=== PATIENT | male | born 1995 | race African-American/Black ===

== ENCOUNTER 2016-12-11 20:16 | Emergency (ER) | payer SELFPAY ==
[~2016-12-11] VITALS: Ht 188 cm; Wt 104.3 kg
[2016-12-11 20:32] VITALS: BP 149/72
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
--- NOTE | 2016-12-12 08:00 | RAD ---
EXAM: Neck soft tissues 2 views. HISTORY: Forearm body sensation. COMPARISON: None. FINDINGS: There is pneumomediastinum which tracks throughout the retropharyngeal soft tissue planes. No radiopaque foreign body or clear soft tissue swelling are seen. IMPRESSION: 1. Pneumomediastinum extending through the retropharyngeal soft tissue planes. No clear radiopaque foreign body. These findings were called to Dr. Corky Canchola by Jimmie Perez on 12/12/2016 at 0750.
--- NOTE | 2016-12-12 08:22 | PDOC ---
OBJECTIVE Vital Signs Vital Signs Date Time Temp Pulse Resp B/P Pulse Ox O2 Delivery O2 Flow Rate FiO2 12/11/16 20:32 98.0 78 18 97 Room Air 98.0 ASSESSMENT/PLAN Assessment/Plan Received call from radiology re: x-ray soft tissue neck that was obtained last night. Official radiology read as below: IMPRESSION: 1. Pneumomediastinum extending through the retropharyngeal soft tissue planes. No clear radiopaque foreign body. Per radiologist, this could be simply from coughing fit and air that has tracked up into neck soft tissues. However, if patient did swallow foreign body , it could represent more serious problem such as esophageal perforation. I called the patient's listed home phone number; I spoke with another member of the household, who will have him call back to the ED as soon as possible. Still awaiting call back at this time. Problems: TRIPP HINTON MD Dec 12, 2016 08:22
== END 2016-12-11 21:55 | disposition home or self-care (01) ==
LOC: ER 20:16
DX: R09.89 Other specified symptoms and signs involving the circulatory and respiratory systems (principal); L98.8 Other specified disorders of the skin and subcutaneous tissue; F17.210 Nicotine dependence, cigarettes, uncomplicated
CPT/HCPCS: 70360; 99284